=== PATIENT | male | born 1995 | race Caucasian/White ===

== ENCOUNTER 2021-09-03 21:28 | Emergency (ER) | payer SELFPAY ==
[~2021-09-03] VITALS: Ht 177.8 cm; Wt 108.9 kg
[2021-09-03 22:15] VITALS: BP 145/88
--- NOTE | 2021-09-03 22:20 | NUR ---
BIBS FOR C/O DIZZINESS WORSE WHILE DRIVING X 2 DAYS + NAUSEA, +H/A. PATIENT ALERT AND ORIENTED X3. AMBULATORY WITH NON LABORED BREATHING.
[2021-09-03 22:57] LABS: ABG BASE EXCESS -1.7 mmol/L; ABG PH 7.409 (7.350-7.450); ABG PO2 88.4 mmHg (75.0-100.0); COHb 0.1 % (0.5-1.5); MetHb 0.4 % (0.0-1.5); O2Hb 96.1 % (94.0-97.0); SITE, ABG Right Radial; VENT MODE, BG ROOM AIR
--- NOTE | 2021-09-03 23:26 | NUR ---
Patient discharged to home in stable condition. Written and verbal after care instructions given. Patient verbalizes understanding of instruction.
== END 2021-09-03 23:26 | disposition home or self-care (01) ==
LOC: ER 21:30
DX: Z77.098 Contact with and (suspected) exposure to other hazardous, chiefly nonmedicinal, chemicals (principal); R42 Dizziness and giddiness
CPT/HCPCS: 36600; 82803-TC